=== PATIENT | male | born 1950 | race Caucasian/White ===

== ENCOUNTER → 2017-03-30 | Outpatient (CLI) | payer MEDICARE, OTHER ==
--- NOTE | 2017-03-30 15:02 | DI ---
INDICATION: ITS.REASON: C34.12 MALIGNANT NEOPLASM OF UPPER LOBE, LEFT BRONCHUS OR LUNG PROCEDURE: CHEST 2-VIEWS UPRIGHT (PA \T\ LAT) Encounter: Initial COMPARISON: 01/03/2017 FINDINGS: The lungs are hyperexpanded and hyperlucent with flattened diaphragms. Linear scarring is again seen left perihilar region coursing laterally. The heart size, mediastinal contours and pulmonary vascularity are within normal limits. Right Port-A-Cath remains in place with tip in mid SVC. There is no significant skeletal abnormality. Mild hypertrophic spurring is seen throughout the lower dorsal spine IMPRESSION: 1. No acute cardiopulmonary disease. 2. Stable scarring left mid lung field. 3. Stable hyperlucency and hyperinflation. .
== END ==
LOC: IMA 14:27
PROVIDERS: ATTEND Internal Medicine Hematology & Oncology
DX: C34.12 Malignant neoplasm of upper lobe, left bronchus or lung (principal)

== ENCOUNTER 2017-05-12 11:22 | Inpatient (IN) ==
[2017-05-12] MEDS ORDERED: ONDANSETRON 4 MG/2 ML INJECTION IVP PRN (12:41)
--- NOTE | 2017-05-12 12:50 | History & Physical Report ---
<Lakeshia Medina V - Last Filed: 05/12/17 12:47> History of Present Illness Date: 05/12/17 Chief complaint: lung cancer with metastatic disease to liver HPI: Galindo is a pleasant 67-year-old male who currently resides in [place], [place]. He has been under the care of Dr. Hernandez for lung cancer with metastases to the liver. Patient reports he was initially diagnosed with lung cancer in May 2016. At that time. Liver metastases were found. He underwent chemotherapy as well as radiation. He reports that his liver metastases had resolved. However, in a recent PET scan liver abnormalities were found. He underwent a liver biopsy last week at [facility]. He was instructed by Dr. Thorne to come to [facility] today for further workup, evaluation and chemotherapy treatment. Ronaldo is seen on arrival to [facility]. He is accompanied by his . He is alert, oriented and pleasant. Without any complaints of pain currently. He reports for the last week he is not felt as "perky" since his liver biopsy. No chest pain, shortness of breath, abdominal pain, diarrhea, dysuria or fevers. Did discuss advanced directives with patient and . He does verify that he is a full code. Review of Systems All systems: reviewed and no additional remarkable complaints except as stated - Constitutional Constitutional: Present: fatigue PFSH Patient Stated Medical History Cataracts Yes: bilat. 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 No seizures since that time. Surgical History: Bilateral cataract extraction. Tonsillectomy. Penis implant- removed in 2016 (was present for approximately 9 years) Family History: Father-diabetes, at age 80 Mother-alive and well at age 90 - Social History Smoking status: Former smoker Quit date: 11/21/89 (her dislocated age 14) Substance use type: does not use Alcohol intake: former (Quit ETOH use in 1981.) Housing: house Household members: spouse Current occupational status: retired Medications Home Medications Medication Instructions Recorded Confirmed Type Atenolol [Tenormin] 50 mg PO DAILY 05/12/17 05/12/17 History Hydrocodone/APAP 5/325 [Globe 1 tab PO Q4H PRN 05/12/17 05/12/17 History 5/325] Iron Ps Cmplx/Vit B12/FA 1 each PO BID 05/12/17 05/12/17 History [Poly-Iron 150 Forte Capsule] Magnesium Oxide [Magnesium] 1 tab PO BID 05/12/17 05/12/17 History Multivit-Min/Iron/Folic Acid/K 1 tab PO DAILY 05/12/17 05/12/17 History [Multi-Day Plus Minerals Tablet] Ondansetron HCl [Zofran] 8 mg PO Q8H PRN 05/12/17 05/12/17 History Prochlorperazine Maleate 10 mg PO Q6H PRN 05/12/17 05/12/17 History [Compazine] RX: Aspirin 1 tab PO DAILY 05/12/17 05/12/17 History Tamsulosin HCl [Flomax] 1 cap PO HS 05/12/17 05/12/17 History raNITIdine HCl [Zantac] 1 tab PO BID 05/12/17 05/12/17 History Allergies Allergy/AdvReac Type Severity Reaction Status Date / Time Walnuts Allergy Severe Hypotension Verified 05/12/17 12:09 almond Allergy Intermediate Itching Verified 05/12/17 12:09 Exam Height: 1.87 m Weight: 82.5 kg Body Mass Index: 23.6 - Constitutional Present: no acute distress, well nourished, well developed - Routine HEENT Exam Head: Present: normocephalic, atraumatic Eye: Present: EOMI, PERRL - Routine Neck Exam Present: full ROM - Routine Respiratory Exam Present: CTA bilaterally - Routine Cardiovascular Exam Present: RRR, S1, S2, no murmur - Routine Abdominal Exam Present: soft, normoactive bowel sounds - Routine Extremities Exam Present: non tender, full ROM - Routine Back/Spine/Pelvis Exam Back/Spine: Present: full ROM - Routine Skin Exam Present: intact, warm - Routine Neurological Exam Present: alert, oriented X3, CN II-XII intact, moving all extremities - Routine Psychiatric Exam Present: normal affect, normal thought process Assessment and Plan (1) Lung cancer Current visit: Yes Status: Chronic 05/12/17 13:03 Initially diagnosed in May 2016 (2) Liver metastasis Current visit: Yes Status: Chronic (3) BPH (benign prostatic hyperplasia) Current visit: Yes Status: Chronic DVT Prophylaxis: SCD's Resuscitation Status: Full Code Assessment and Plan: Admit patient to inpatient status under the care of Dr Joseph covering hospitalist. Will obtain basic laboratory studies on admission including CBC, CMP, magnesium , calcium, phosphorus, and urinalysis for laboratory completeness. Will obtain MRI of the brain with contrast as recommended by Dr. Hernandez for further evaluation and to rule out brain metastasis. Consult has been placed for Dr. Hernandez for further oncology evaluation and treatment. SCDs to bilateral lower extremity for DVT prophylaxis. Morphine and 100 ML per hour for gentle hydration. Zofran available as needed for nausea. Resume home magnesium and Flomax. Aspirin Hold in Case Patient Requires Procedure. Again patient wishes to be a full code and this orders written. Will discuss further plan of care with attending, Dr. Joseph. At time of discharge medical care will return to his primary care provider in [place], [place], Dr. Abdulaziz Jett [facility] Course Summary Disclaimer: The visit summary below is not to be considered part of the above Progress Note. Hospital Course: 05/12/17 13:06 Admit patient to inpatient status under the care of Dr Joseph covering hospitalist. Will obtain basic laboratory studies on admission including CBC, CMP, magnesium , calcium, phosphorus, and urinalysis for laboratory completeness. Will obtain MRI of the brain with contrast as recommended by Dr. Hernandez for further evaluation and to rule out brain metastasis. Consult has been placed for Dr. Hernandez for further oncology evaluation and treatment. SCDs to bilateral lower extremity for DVT prophylaxis. Morphine and 100 ML per hour for gentle hydration. Zofran available as needed for nausea. Resume home magnesium and Flomax. Aspirin Hold in Case Patient Requires Procedure. Again patient wishes to be a full code and this orders written. Will discuss further plan of care with attending, Dr. Joseph. At time of discharge medical care will return to his primary care provider in [place], [place], Dr. Abdulaziz Shay <Reji Joseph - Last Filed: 05/12/17 18:02> History of Present Illness Date: 05/12/17 [facility] Patient Stated Medical History Cataracts Yes: bilat. repair Hearing Loss Yes Hypertension Yes Other Respiratory Yes: lung CA left,tx with radiation Other GI Yes: liver CA Clotting Problems Yes: blood clot ?subclavian Blood Transfusions Yes: last year Chemotherapy Yes Exam Vital Signs: Temp Pulse Resp BP Pulse Ox 97.8 F 54 L 16 134/68 93 05/12/17 15:51 05/12/17 17:12 05/12/17 17:12 05/12/17 15:51 05/12/17 17:12 Height: 6 ft 1.5 in Weight: 82.5 kg Results - Labs CBC & Chem 7: 05/12/17 16:12 05/12/17 16:12 Assessment and Plan (1) Lung cancer Current visit: Yes Status: Chronic (2) Liver metastasis Current visit: Yes Status: Chronic (3) BPH (benign prostatic hyperplasia) Current visit: Yes Status: Chronic Assessment and Plan: Above noted. Pt seen and examined. He is up in the chair having his dinner and reports feeling very good. Pt MRI of the brain was negative. Anticipate starting chemo in the AM. Allopurinol ordered at 100mg PO TID; and changed to 300mg PO/day by Oncology. VSS NC/AT ROBEL Chest - RRR no murmurs, good air entry. Abdomen - soft NT/ND. Ext - No edema A/P 1) Neuroendocrine tumor with widespread metastasis - pt to start Chemo in the AM. Hospital Course Summary Disclaimer: The visit summary below is not to be considered part of the above Progress Note.
[2017-05-12] MEDS: NS 1,000 ML IV SCH (13:10)
[2017-05-12] MEDS ORDERED: GADOBUTROL 10mMol/10ml INJECTION IVP ONE (14:19)
[2017-05-12] MEDS ORDERED: SALINE FLUSH 10ml SYRINGE ONE (14:19)
--- NOTE | 2017-05-12 15:15 | Magnetic Resonance Report ---
Indication: History of lung cancer with metastatic disease, evaluate brain mets PROCEDURE: MR head/brain wo/w con: Encounter: Initial Comparisons: Chest CT dated November 16, 2016 Technique: Multiplanar, multisequence, MR imaging of the head with and without contrast was acquired. Contrast: 8 mL of Gadavist FINDINGS: Mild generalized atrophy. The ventricles are of normal size, shape, and contour for the patient's age. There are small nonspecific punctate areas of T2-weighted and T2 FLAIR weighted signal abnormality in the deep frontoparietal white matter that most likely represent small vessel ischemic disease. This is of a degree that is considered to be normal for the patient's age. The brain stem, cerebellum, and cerebral hemispheres otherwise have a normal morphologic appearance as well as MR signal intensity on all pulse sequences. Following intravenous administration of contrast, no areas of abnormal enhancement are evident. There are no areas of restricted diffusion to suggest an acute infarct. There is no evidence of an intracranial mass lesion, intracranial hemorrhage, or hydrocephalus. The visualized portions of the orbits, calvarium, paranasal sinuses, and skull base demonstrate no significant abnormality. IMPRESSION: No evidence of intracranial metastatic disease. No acute abnormality seen. .
[2017-05-12] MEDS ORDERED: ALLOPURINOL 100 MG TABLET PO SCH (17:35)
[2017-05-12] MEDS: ALLOPURINOL 300 MG TABLET PO SCH (17:49)
[2017-05-12] MEDS: HYDROCODONE/APAP 5mg/325mg TABLET PO PRN (18:38)
[2017-05-12] MEDS: TAMSULOSIN 0.4 MG CAPSULE PO SCH (21:14)
[2017-05-12] MEDS: MAGNESIUM OXIDE 400 MG TABLET PO SCH (21:14)
[2017-05-13] MEDS: NS 1,000 ML IV SCH ×3 (00:47→21:28)
[2017-05-13] MEDS: HYDROCODONE/APAP 5mg/325mg TABLET PO PRN ×5 (00:53→22:34)
--- NOTE | 2017-05-13 08:47 | Consult Note ---
Oncology HPI - Data of Consult Patient: known to practice within the last 3 years <Sarah Hooper Mackenzie - 05/13/17 08:47> Consult date: 05/13/17 <SandieSarah alonzo Mackenzie - 05/13/17 12:05> Requesting Physician: Reji Joseph MD <Oswaldo Hernandez - 05/13/17 14:56> Reji Joseph MD <Sarah Hooper - 05/13/17 12:05> Primary Care Provider: Abdulaziz Shay DO <Oswaldo Hernandez - 05/13/17 14:56> Abdulaziz Shay DO <Sarah Hooper - 05/13/17 08:47> Family Provider: Abdulaziz Shay DO <Oswaldo Hernandez - 05/13/17 14:56> Abdulaziz Shay DO <SandieSarah L - 05/13/17 08:47> - Consult Narrative Reason for consult: lung cancer <Sarah Hooper - 05/13/17 08:47> History of present illness: Well-known patient to Dr. Hernandez with non-small cell lung cancer diagnosed May 2016, s/p chemoradiation had recent CT evidence of progressive disease in the liver, disease in lung improved. Current PET scan shows extensive disease along the peritoneum, most compatible with a GI primary , but also could be related to a lung primary. 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 Plan chemotherapy as inpatient with carboplatin and etoposide, with close monitoring of renal/liver function and counts. At time of intake, he is alone in room, sitting in chair. Continues to have intermittent right upper quadrant pain, states relieved with as needed medications. Has decreased appetite, denies nausea or vomiting. No fever, chills , night sweats. Denies chest pain, cough, or shortness of air. Voiding normally. Normal BM yesterday, has no new concerns. See below for history of present illness/last progress note from Dr. Hernandez History of Present Illness --2016: Weight loss about 20 pound over time period of 11/2015 to 05/2016. --05/2016: Night sweats 03/2016 to 05/2016. --05/21/16: CT scan of the chest: Showing left upper lobe mass and mediastinal adenopathy. --06/04/16: Bronchoscopy with pathology being non small cell lung cancer NOS. --06/18/16: Biocept: EGFR and BRAF not detected. ALK , ROS 1 pending. --07/01/16: Began chemotherapy with Abraxane and Carboplatin. --08/05/16: ANC 800. Added G-CSF. --08/06/16: Received two units of PRBCs. --10/25/16: Began weekly Carboplatin Abraxane with XRT --12/17/16: Completed XRT. --03/14/17: Initiation of stereotactic radiation to the liver lesion. Office visit 05/12/17: Gene comes in with his this afternoon. He has pain just below his liver. The pathologist thinks this is a different cancer than the cancer in his lung; possible neuroendocrine of GI origin. We reviewed the results of his labs, PET scan, and pathology. A neuroendocrine cancer tends to grow rapidly so we need to start treatment now. There is a risk of significant side effects. I want to admit him to the hospital for 3 days and get treatment started tomorrow. If we don't treat, average survival is 2-3 months; with treatments, average survival is closer to a year, some patients go 2-3 years. He does not want to just stand and stare at it so agrees to treatment. I talked to the hospitalist at [facility] about admitting him. I expect him to be dismissed next Tuesday and he can see Patricia Hooper for a radha visit at the end of the week. <Sarah Hooper - 05/13/17 12:05> Review of Systems - Constitutional Constitutional: Present: anorexia, fatigue. Absent: chills, fever(s), night sweats <Sarah Hooper - 05/13/17 12:05> - EENT Eyes: Absent: change in vision, diplopia <Sarah Hooper - 05/13/17 12:05> - Cardiovascular Cardiovascular: Absent: chest pain, palpitations, dyspnea on exertion <Sarah Hooper - 05/13/17 12:05> - Respiratory Respiratory: Absent: cough, dyspnea, wheezing <Sarah Hooper - 05/13/17 12:05 > - Gastrointestinal Gastrointestinal: Present: as per HPI, abdominal pain. Absent: change in bowel habits, nausea, vomiting <Sarah Hooper - 05/13/17 12:05> - Genitourinary Genitourinary: Absent: hematuria, urinary frequency <Sarah Hooper Mackenzie 12:05> - Musculoskeletal Musculoskeletal: Absent: arthralgias, muscle weakness <Sarah Hooper - 12:05> - Integumentary/Breasts Integumentary: Absent: rash, wounds <Sarah Hooper Mackenzie 05/13/17 12:05> - Neurological Neurological: Absent: focal weakness, headache(s) <Sarah Hooper 05/13/17 12:05> - Psychiatric Psychiatric: Present: as per HPI <Sarah Hooper 05/13/17 12:05> PFSH Patient Stated Medical History Cataracts Yes: bilat. repair Hearing Loss Yes Hypertension Yes Other Respiratory Yes: lung CA left,tx with radiation Other GI Yes: liver CA Clotting Problems Yes: blood clot ?subclavian Blood Transfusions Yes: last year Chemotherapy Yes <Oswaldo Hernandez - 05/13/17 14:56> Patient Stated Medical History Cataracts Yes: bilat. repair Hearing Loss Yes Hypertension Yes Other Respiratory Yes: lung CA left,tx with radiation Other GI Yes: liver CA Clotting Problems Yes: blood clot ?subclavian Blood Transfusions Yes: last year Chemotherapy Yes <Sarah Hooper Mackenzie 05/13/17 12:05> Surgical History: Bilateral cataract extraction. Tonsillectomy. Penis implant- removed in 2016 (was present for approximately 9 years) <Sarah Hooper Mackenzie 08:47> Family History: Paternal grandfather cancer of the spine, paternal uncle with some type of unknown cancer. No other known cancers in maternal grandparents, aunts, uncles or first cousins. <Sarah Hooper Mackenzie 05/13/17 12:05> - Social History Smoking status: Former smoker (36 pack year history, quit 1989.) <Sarah Hooper Mackenzie 05/13/17 12:05> Medications Home Medications Medication Instructions Recorded Confirmed Type Aspirin 1 tab PO DAILY 05/12/17 05/12/17 History Atenolol [Tenormin] 50 mg PO DAILY 05/12/17 05/12/17 History Hydrocodone/APAP 5/325 [Cody 1 tab PO Q4H PRN 05/12/17 05/12/17 History 5/325] Iron Ps Cmplx/Vit B12/FA 1 each PO BID 05/12/17 05/12/17 History [Poly-Iron 150 Forte Capsule] Magnesium Oxide [Magnesium] 1 tab PO BID 05/12/17 05/12/17 History Multivit-Min/Iron/Folic Acid/K 1 tab PO DAILY 05/12/17 05/12/17 History [Multi-Day Plus Minerals Tablet] Ondansetron HCl [Zofran] 8 mg PO Q8H PRN 05/12/17 05/12/17 History Prochlorperazine Maleate 10 mg PO Q6H PRN 05/12/17 05/12/17 History [Compazine] Tamsulosin HCl [Flomax] 1 cap PO HS 05/12/17 05/12/17 History raNITIdine HCl [Zantac] 1 tab PO BID 05/12/17 05/12/17 History <Oswaldo Hernandez - 05/13/17 14:56> Allergies Allergy/AdvReac Type Severity Reaction Status Date / Time Walnuts Allergy Severe Hypotension Verified 05/12/17 12:09 almond Allergy Intermediate Itching Verified 05/12/17 12:09 <Oswaldo Hernandez - 05/13/17 14:56> Exam Vital signs: Temp Pulse Resp BP Pulse Ox 96.6 F L 56 L 16 133/66 95 05/13/17 07:00 05/13/17 12:14 05/13/17 07:00 05/13/17 12:14 05/13/17 12:14 <Oswaldo Hernandez - 05/13/17 14:56> Temp Pulse Resp BP Pulse Ox 96.6 F L 60 16 129/66 94 05/13/17 07:00 05/13/17 07:00 05/13/17 07:00 05/13/17 07:00 05/13/17 07:00 <Sarah Hooper - 05/13/17 08:47> - Constitutional no acute distress, well nourished, well developed <Sarah Hooper - 05/13/17 12:05> - Routine HEENT Exam Head: Present: normocephalic <Sarah Hooper - 05/13/17 12:05> Eye: Present: EOMI, conjunctivae pink <Sarah Hooper 05/13/17 12:05> ENT: Present: mucous membranes moist <Sarah Hooper - 05/13/17 12:05> - Routine Neck Exam Absent: lymphadenopathy, tenderness <Sarah Hooper 05/13/17 12:05> - Routine Respiratory Exam Present: decreased breath sounds, CTA bilaterally. Absent: accessory muscle use , wheezes, crackles <Sarah Hooper 05/13/17 12:05> - Routine Cardiovascular Exam Present: RRR. Absent: murmur <Sarah Hooper 05/13/17 12:05> - Routine Abdominal Exam Present: soft, normoactive bowel sounds, tenderness (mild tenderness with exam) . Absent: distended, firm <Sarah Hooper 05/13/17 12:05> - Routine Extremities Exam Present: full ROM. Absent: no edema <Sarah Hooper 05/13/17 12:05> - Routine Back/Spine/Pelvis Exam Back/Spine: Absent: vertebral tenderness <Sarah Hooper 05/13/17 12:05> - Routine Skin Exam Present: intact, dry, warm. Absent: rash <Sarah Hooper 05/13/17 12:05> - Routine Neurological Exam Present: alert, oriented X3. Absent: sensory deficit, motor deficit <Sarah Hooper 05/13/17 12:05> - Routine Psychiatric Exam Present: normal affect, normal thought process <Sarah Hooper 05/13/17 12: 05> Oncology Results - Labs CBC & Chem 7: 05/13/17 05:21 05/13/17 05:21 <Oswaldo Hernandez - 05/13/17 14:56> Labs: Short CBC 05/12/17 05/13/17 Range/Units 16:12 05:21 WBC 7.1 6.3 (4.5-11.0) T/MM3 Hgb 12.0 L 10.4 L D (13.5-17.5) GM/DL Hct 38.1 L 33.6 L D (41-53) % Plt Count 263 239 (130-400) T/MM3 [facility] 05/12/17 05/13/17 16:12 05:21 Sodium 145 H 142 Potassium 4.8 4.4 Chloride 105 105 Carbon Dioxide 30 30 BUN 31.0 H 26.0 H Creatinine 1.0 0.9 Glucose 131 H 85 Calcium 9.5 8.4 D Liver Function 05/12/17 05/13/17 Range/Units 16:12 05:21 Total Bilirubin 0.50 0.60 (0.20-1.30) MG/DL AST 110 H 127 H (17-59) U/L ALT 101 H 107 H (21-72) U/L Alkaline Phosphatase 248 H 220 H (38-126) U/L Albumin 3.6 3.1 L (3.5-5.0) G/DL Urine 05/12/17 Range/Units 17:52 Urine Color Yellow (YELLOW) Urine Clarity Clear Urine pH 5.0 (5.0-8.0) Ur Specific [place] >=1.030 H (1.015-1.025) Urine Protein Negative (NEGATIVE) Urine Glucose (UA) Negative (NEGATIVE) <Oswaldo Hernandez D - 05/13/17 14:56> Short CBC 05/12/17 05/13/17 Range/Units 16:12 05:21 WBC 7.1 6.3 (4.5-11.0) T/MM3 Hgb 12.0 L 10.4 L D (13.5-17.5) GM/DL Hct 38.1 L 33.6 L D (41-53) % Plt Count 263 239 (130-400) T/MM3 [facility] 05/12/17 05/13/17 16:12 05:21 Sodium 145 H 142 Potassium 4.8 4.4 Chloride 105 105 Carbon Dioxide 30 30 BUN 31.0 H 26.0 H Creatinine 1.0 0.9 Glucose 131 H 85 Calcium 9.5 8.4 D Liver Function 05/12/17 05/13/17 Range/Units 16:12 05:21 Total Bilirubin 0.50 0.60 (0.20-1.30) MG/DL AST 110 H 127 H (17-59) U/L ALT 101 H 107 H (21-72) U/L Alkaline Phosphatase 248 H 220 H (38-126) U/L Albumin 3.6 3.1 L (3.5-5.0) G/DL Urine 05/12/17 Range/Units 17:52 Urine Color Yellow (YELLOW) Urine Clarity Clear Urine pH 5.0 (5.0-8.0) Ur Specific [place] >=1.030 H (1.015-1.025) Urine Protein Negative (NEGATIVE) Urine Glucose (UA) Negative (NEGATIVE) <Sarah Hooper - 05/13/17 08:47> - Impressions Pathology shows a poorly differentiated neoplasm from the liver biopsy. Immunostains favor neuroendocrine tumor. Consider pheochromocytoma cytoma or small cell lung cancer tumor is positive for CD 56 and CDX 2. 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 Plan GCSF support. <Sarah Hooper - 05/13/17 11:45> (1) Lung cancer Start date: 06/04/16 Current visit: Yes Status: Chronic (2) Liver metastasis Current visit: Yes Status: Chronic Liver metastasis shows a poorly differentiated neuroendocrine carcinoma that is grown very rapidly over the last 3 months with associated marked increase in LDH. Currently admitted for initial cycle of chemotherapy with prevention of tumor lysis. <Oswaldo Hernandez - 05/13/17 14:56> Assessment and Plan: Patient examined, chart reviewed, agree with documentation by Patricia Hooper. I participate in the development of the plan of care with this patient and I discussed the case with hospitalist. 1. Extensive liver metastasis from neuroendocrine carcinoma CDX 2 positivity makes it seem like it is of GI origin. It could be of lung origin however. In any case the extensive disease in the rapid progression after stereotactic radiotherapy elevated LDH document the need for urgent treatment. Will begin chemotherapy for neuroendocrine carcinoma with carboplatinum and etoposide. Doses were calculated and will plan on starting this therapy today. 2. Lung malignancy poorly differentiated. Treated with chemotherapy initially and liver lesion went away. Had chemoradiation and lung cancer has responded dramatically well. 3. Pain in liver secondary to tumor 4. Elevated LDH secondary to tumor. Plan: Chemotherapy with Carboplatin and etopiside Hydration allopurinol Neulasta on Day 4 or 5. This can be done on outpatient basis after completion of chemotherapy on Tuesday. He can be dismissed on Tuesday if tolerating well. <Oswaldo Hernandez - 05/13/17 14:56> Sepsis Assessment - Evaluation Sepsis screening result: No Definite Risk <Sarah Hooper - 05/13/17 08:47>
--- NOTE | 2017-05-13 09:36 | Progress Note ---
Subjective: Pt states he is feeling fine. He has noticed some discomfort on his RUQ and lower thoracic area. Pt has not had any cough or fever. He will be starting chemo later today. Objective Vital signs: Temp Pulse Resp BP Pulse Ox 96.6 F L 60 16 129/66 94 05/13/17 07:00 05/13/17 07:00 05/13/17 07:00 05/13/17 07:00 05/13/17 07:00 Rhythm: Normal Sinus Rhythm Weight: 84.2 kg - Constitutional Present: no acute distress, well developed, thin - Routine HEENT Exam Head: Present: normocephalic, atraumatic Eye: Present: EOMI, PERRL - Routine Respiratory Exam Present: CTA bilaterally - Routine Cardiovascular Exam Present: RRR - Routine Abdominal Exam Present: soft, non distended, non tender - Routine Neurological Exam Present: alert, oriented X3 - Routine Psychiatric Exam Present: normal thought process Results - Labs CBC & Chem 7: 05/13/17 05:21 05/13/17 05:21 Assessment and Plan (1) Lung cancer Current visit: Yes Status: Chronic 05/12/17 13:03 Initially diagnosed in May 2016 (2) Liver metastasis Current visit: Yes Status: Chronic (3) BPH (benign prostatic hyperplasia) Current visit: Yes Status: Chronic Assessment and Plan: This is a 67 YO male admitted with a neuroendocrine tumor with liver mets who will be starting chemo today. MRI done on 05/12 was normal. A/P 1) Neuroendocrine tumor with widespread metastasis - pt to start Chemo later today. 2) ? of atelectasis ? after liver biopsy - Check CXR PA and lateral. - May need incentive spirometry. Sepsis Assessment - Evaluation Sepsis screening result: No Definite Risk Hospital Course Summary Disclaimer: The visit summary below is not to be considered part of the above Progress Note. Hospital Course: 05/12/17 13:06 Admit patient to inpatient status under the care of Dr Jake josue hospitalist. Will obtain basic laboratory studies on admission including CBC, CMP, magnesium , calcium, phosphorus, and urinalysis for laboratory completeness. Will obtain MRI of the brain with contrast as recommended by Dr. Hernandez for further evaluation and to rule out brain metastasis. Consult has been placed for Dr. Hernandez for further oncology evaluation and treatment. SCDs to bilateral lower extremity for DVT prophylaxis. Morphine and 100 ML per hour for gentle hydration. Zofran available as needed for nausea. Resume home magnesium and Flomax. Aspirin Hold in Case Patient Requires Procedure. Again patient wishes to be a full code and this orders written. Will discuss further plan of care with attending, Dr. Joseph. At time of discharge medical care will return to his primary care provider in [place], [place], Dr. Abdulaziz Shay
[2017-05-13] MEDS: MAGNESIUM OXIDE 400 MG TABLET PO SCH ×2 (09:42→21:28)
[2017-05-13] MEDS: ALLOPURINOL 300 MG TABLET PO SCH (09:42)
[2017-05-13] MEDS: ATENOLOL 50 MG TABLET PO SCH (09:42)
--- NOTE | 2017-05-13 10:40 | XRay Report ---
INDICATION: Lower R sided Chest pain PROCEDURE: CHEST 2-VIEWS UPRIGHT (PA & LAT) Encounter: Initial COMPARISON: March 30, 2017 FINDINGS: Stable area of scarring in the left upper lobe. Emphysema. No consolidation, pleural effusion or pneumothorax. Heart size and mediastinal contours are stable. Right IJ port catheter. Pulmonary vascularity appears normal. Impression: Stable chest without acute cardiopulmonary disease. .
[2017-05-13] MEDS ORDERED: DEXAMETHASONE IV SCH (11:00)
[2017-05-13] MEDS ORDERED: PALONOSETRON 0.25 MG/5 ML INJECTION IV ONE (11:00)
[2017-05-13] MEDS ORDERED: NS IV SCH (11:00)
[2017-05-13] MEDS ORDERED: D5W IV SCH (11:30)
[2017-05-13] MEDS ORDERED: CARBOPLATIN IV SCH (11:30)
[2017-05-13] MEDS ORDERED: NS IV ONE (12:30)
[2017-05-13] MEDS ORDERED: ETOPOSIDE IV ONE (12:30)
[2017-05-13] MEDS: TAMSULOSIN 0.4 MG CAPSULE PO SCH (21:28)
[2017-05-13] MEDS: PROCHLORPERAZINE 10 MG TABLET PO PRN (21:28)
[2017-05-14] MEDS: HYDROCODONE/APAP 5mg/325mg TABLET PO PRN ×2 (08:03→21:35)
[2017-05-14] MEDS: PROCHLORPERAZINE 10 MG TABLET PO PRN (08:03)
[2017-05-14] MEDS: ALLOPURINOL 300 MG TABLET PO SCH (08:03)
[2017-05-14] MEDS: MAGNESIUM OXIDE 400 MG TABLET PO SCH ×2 (08:03→21:36)
[2017-05-14] MEDS: ATENOLOL 50 MG TABLET PO SCH (08:03)
--- NOTE | 2017-05-14 10:43 | Progress Note ---
Subjective: Pt states his appetite is poor, otherwise denies any discomfort. Does not appear to be SOB, or in any distress. Objective Vital signs: Temp Pulse Resp BP Pulse Ox 96.5 F L 62 18 165/79 H 92 05/14/17 07:10 05/14/17 07:10 05/14/17 07:10 05/14/17 07:10 05/14/17 07:10 Rhythm: Normal Sinus Rhythm Weight: 85.8 kg - Constitutional Present: no acute distress, well nourished, well developed, thin - Routine HEENT Exam Head: Present: normocephalic, atraumatic - Routine Respiratory Exam Present: CTA bilaterally - Routine Cardiovascular Exam Present: RRR. Absent: murmur - Routine Abdominal Exam Present: soft, non distended, non tender - Routine Extremities Exam Absent: cyanosis, clubbing, edema - Routine Musculoskeletal Exam Musculoskeletal: no clubbing or cyanosis - Routine Skin Exam Present: intact - Routine Neurological Exam Present: alert, oriented X3 - Routine Psychiatric Exam Present: normal affect, cooperative Results - Labs CBC & Chem 7: 05/14/17 04:29 05/14/17 04:29 Assessment and Plan (1) Lung cancer Current visit: Yes Status: Chronic 05/12/17 13:03 Initially diagnosed in May 2016 (2) Liver metastasis Current visit: Yes Status: Chronic (3) BPH (benign prostatic hyperplasia) Current visit: Yes Status: Chronic Assessment and Plan: This is a 67 YO male admitted with a neuroendocrine tumor with liver mets who was admitted for chemo and was started on 05/13. MRI done on 05/12 was negative for any brain mets. A/P 1) Neuroendocrine tumor with widespread metastasis - Blood tests show elevation of the LFT's, Alk phos most likely due to the liver mets. - Mg is normal today. - Uric acid 3.9 today, pt on Allopurinol. - LDH very high likely due to cell due to chemo. - Pt was informed about Marinol to manage poor appetite and nausea. Sepsis Assessment - Evaluation Sepsis screening result: No Definite Risk Hospital Course Summary Disclaimer: The visit summary below is not to be considered part of the above Progress Note. Hospital Course: 05/12/17 13:06 Admit patient to inpatient status under the care of Dr Jake josue hospitalist. Will obtain basic laboratory studies on admission including CBC, CMP, magnesium , calcium, phosphorus, and urinalysis for laboratory completeness. Will obtain MRI of the brain with contrast as recommended by Dr. Hernandez for further evaluation and to rule out brain metastasis. Consult has been placed for Dr. Hernandez for further oncology evaluation and treatment. SCDs to bilateral lower extremity for DVT prophylaxis. Morphine and 100 ML per hour for gentle hydration. Zofran available as needed for nausea. Resume home magnesium and Flomax. Aspirin Hold in Case Patient Requires Procedure. Again patient wishes to be a full code and this orders written. Will discuss further plan of care with attending, Dr. Joseph. At time of discharge medical care will return to his primary care provider in [place], [place], Dr. Abdulaziz Shay 05/14/17 10:46 05/13 -/05/14 Chemo started. Mg normal. LFT's trending up, LDH very high - due to liver mets and cell due to chemo. developed Nausea on 05/14.
[2017-05-14] MEDS: NS 1,000 ML IV SCH (11:21)
[2017-05-14] MEDS: ONDANSETRON 4 MG/2 ML INJECTION IVP PRN (12:22)
[2017-05-14] MEDS ORDERED: NS IV SCH (12:30)
[2017-05-14] MEDS ORDERED: DEXAMETHASONE IV SCH (12:30)
[2017-05-14] MEDS ORDERED: NS IV ONE (13:00)
[2017-05-14] MEDS ORDERED: ETOPOSIDE IV ONE (13:00)
--- NOTE | 2017-05-14 14:38 | Progress Note ---
Oncology Subjective wm in nad, c/o heartburn, anorexia, reflux, nausea, vomiting Exam Vital signs: Temp Pulse Resp BP Pulse Ox 96.5 F L 66 18 143/70 H 96 05/14/17 07:10 05/14/17 12:00 05/14/17 12:00 05/14/17 12:00 05/14/17 12:00 Narrative: wm in nad, c/o nausea - Constitutional no acute distress, well nourished - Routine HEENT Exam Head: Present: normocephalic, atraumatic - Routine Neck Exam Present: supple, full ROM - Routine Respiratory Exam Present: CTA bilaterally - Routine Cardiovascular Exam Present: RRR, no murmur - Routine Abdominal Exam Present: soft, tenderness Oncology Results - Labs CBC & Chem 7: 05/14/17 04:29 05/14/17 04:29 Labs: Short CBC 05/14/17 Range/Units 04:29 WBC 8.3 (4.5-11.0) T/MM3 Hgb 11.2 L (13.5-17.5) GM/DL Hct 35.4 L (41-53) % Plt Count 240 (130-400) T/MM3 BMP 05/14/17 04:29 Sodium 143 Potassium 4.9 Chloride 106 Carbon Dioxide 29 BUN 23.0 H Creatinine 0.7 L D Glucose 185 H Calcium 8.6 Liver Function 05/14/17 Range/Units 04:29 Total Bilirubin 0.70 (0.20-1.30) MG/DL AST 1148 H D (17-59) U/L ALT 526 H D (21-72) U/L Alkaline Phosphatase 241 H (38-126) U/L Albumin 3.1 L (3.5-5.0) G/DL Assessment and Plan (1) Lung cancer Status: Chronic Assessment and plan: continue chemo with carbo and vp mobile products-16 Current Visit: Yes (2) Liver metastasis Status: Chronic Assessment and plan: chemo with carbo and vp mobile products-16 Current Visit: Yes Assessment and Plan: Patient examined, chart reviewed, agree with documentation by Patricia Hooper. I participate in the development of the plan of care with this patient and I discussed the case with hospitalist. 1. Extensive liver metastasis from neuroendocrine carcinoma CDX 2 positivity makes it seem like it is of GI origin. It could be of lung origin however. In any case the extensive disease in the rapid progression after stereotactic radiotherapy elevated LDH document the need for urgent treatment. Will begin chemotherapy for neuroendocrine carcinoma with carboplatinum and etoposide. Doses were calculated and will plan on starting this therapy today. 2. Lung malignancy poorly differentiated. Treated with chemotherapy initially and liver lesion went away. Had chemoradiation and lung cancer has responded dramatically well. 3. Pain in liver secondary to tumor 4. Elevated LDH secondary to tumor. Plan: Chemotherapy with Carboplatin and etopiside Hydration allopurinol Neulasta on Day 4 or 5. This can be done on outpatient basis after completion of chemotherapy on Tuesday. He can be dismissed on Tuesday if tolerating well. Due to nausea and heartburn I d/w hospitalist to add protonix as well. Also, consider med for anorxia also, consider med for constipation and to increase BM qd Plan chemo with vp mobile products-16 today and in am - Time Spent With Patient Total time spent is greater than 50% in coordination of care (as documented) at patient's floor/unit and/or counseling patient: less than 15 minutes Sepsis Assessment - Evaluation Sepsis screening result: No Definite Risk
[2017-05-14] MEDS: TAMSULOSIN 0.4 MG CAPSULE PO SCH (21:36)
[2017-05-15] MEDS: NS 1,000 ML IV SCH ×3 (00:32→10:18)
[2017-05-15] MEDS: ATENOLOL 50 MG TABLET PO SCH (09:00)
[2017-05-15] MEDS: ALLOPURINOL 300 MG TABLET PO SCH (09:00)
[2017-05-15] MEDS: MAGNESIUM OXIDE 400 MG TABLET PO SCH (09:00)
--- NOTE | 2017-05-15 11:57 | Progress Note ---
Oncology Subjective wm in nad, pos for gas, but no bm to date. pt expects to take stool softener at home, expects home today. ambulatory today and yesterday. Home Medications Aspirin 1 tab PO DAILY 05/12/17 [History Confirmed 05/12/17] Atenolol [Tenormin] 50 mg PO DAILY 05/12/17 [History Confirmed 05/12/17] Hydrocodone/APAP 5/325 [[place] 5/325] 1 tab PO Q4H PRN 05/12/17 [History Confirmed 05/12/17] Iron Ps Cmplx/Vit B12/FA [Poly-Iron 150 Forte Capsule] 1 each PO BID 05/12/17 [ History Confirmed 05/12/17] Magnesium Oxide [Magnesium] 1 tab PO BID 05/12/17 [History Confirmed 05/12/17] Multivit-Min/Iron/Folic Acid/K [Multi-Day Plus Minerals Tablet] 1 tab PO DAILY 05/12/17 [History Confirmed 05/12/17] Ondansetron HCl [Zofran] 8 mg PO Q8H PRN 05/12/17 [History Confirmed 05/12/17] Prochlorperazine Maleate [Compazine] 10 mg PO Q6H PRN 05/12/17 [History Confirmed 05/12/17] Tamsulosin HCl [Flomax] 1 cap PO HS 05/12/17 [History Confirmed 05/12/17] raNITIdine HCl [Zantac] 1 tab PO BID 05/12/17 [History Confirmed 05/12/17] Active Medications Acetaminophen/Hydrocodone Bitart ([place] 5/325) 1 tab PO Q4H PRN PRN Reason: Pain Last Admin: 05/14/17 21:35 Dose: 1 tab Allopurinol (Zyloprim) 300 mg PO DAILY SANIYA Last Admin: 05/15/17 09:00 Dose: 300 mg Atenolol (Tenormin) 50 mg PO DAILY SANIYA Last Admin: 05/15/17 09:00 Dose: 50 mg Sodium Chloride (Normal Saline) 1,000 mls @ 100 mls/hr IV .Q10H SANIYA Last Infusion: 05/15/17 11:45 Dose: 0 mls/hr Etoposide 210 mg/ Sodium (Chloride) 510.5 mls @ 200 mls/hr IV 1300 ONE Stop: 05/15/17 15:33 Dexamethasone Sodium Phosphate (10 mg/ Sodium Chloride) 52.5 mls @ 157.5 mls/ hr IV .Q20M [facility] Stop: 05/15/17 12:49 Last Admin: 05/15/17 11:45 Dose: 157.5 mls/hr Magnesium Oxide (Magox) 400 mg PO BID [facility] Last Admin: 05/15/17 09:00 Dose: 400 mg Ondansetron HCl (Zofran) 4 mg IVP Q6H PRN PRN Reason: Nausea &/or vomiting Last Admin: 05/14/17 12:22 Dose: 4 mg Prochlorperazine (Compazine) 10 mg PO QID PRN PRN Reason: Nausea &/or vomiting Last Admin: 05/14/17 08:03 Dose: 10 mg Tamsulosin HCl (Flomax) 0.4 mg PO HS [facility] Last Admin: 05/14/17 21:36 Dose: 0.4 mg Exam Vital signs: Temp Pulse Resp BP Pulse Ox 98.5 F 54 L 16 166/72 H 91 05/15/17 07:59 05/15/17 07:59 05/15/17 07:59 05/15/17 07:59 05/15/17 07:59 Narrative: wm in nad - Constitutional no acute distress, well nourished - Routine HEENT Exam Head: Present: normocephalic, atraumatic Eye: Present: EOMI, PERRL ENT: Present: mucous membranes moist - Routine Respiratory Exam Present: CTA bilaterally. Absent: wheezes, crackles - Routine Cardiovascular Exam Present: RRR, no murmur - Routine Abdominal Exam Present: soft, organomegaly (ruq is full). Absent: normoactive bowel sounds, tenderness - Routine Extremities Exam Absent: cyanosis, clubbing, edema - Routine Neurological Exam Present: alert, oriented X3 - Routine Psychiatric Exam Present: normal affect Oncology Results - Labs CBC & Chem 7: 05/15/17 04:30 05/15/17 04:30 Labs: Short CBC 05/15/17 Range/Units 04:30 WBC 10.7 (4.5-11.0) T/MM3 Hgb 10.6 L (13.5-17.5) GM/DL Hct 33.8 L (41-53) % Plt Count 212 (130-400) T/MM3 [facility] 05/15/17 04:30 Sodium 141 Potassium 5.0 Chloride 105 Carbon Dioxide 29 BUN 23.0 H Creatinine 0.8 Glucose 160 H Calcium 8.6 Liver Function 05/15/17 Range/Units 04:30 Total Bilirubin 0.50 (0.20-1.30) MG/DL AST 393 H D (17-59) U/L ALT 373 H (21-72) U/L Alkaline Phosphatase 224 H (38-126) U/L Albumin 3.0 L (3.5-5.0) G/DL Assessment and Plan (1) Lung cancer Status: Chronic Assessment and plan: on carbo/vp client services-16 chemotherapy, jt well Current Visit: Yes (2) Liver metastasis Status: Chronic Assessment and plan: chemo today Current Visit: Yes (3) Constipation Status: Acute Assessment and plan: consider stool softeners or laxatives, encourage hydration and ambulation, follow as out patient, limit narcotics to as needed Current Visit: Yes (4) Nausea Status: Acute Assessment and plan: prn nausea meds available Current Visit: Yes (5) History of radiation therapy Status: Acute Current Visit: No (6) History of chemotherapy Status: Acute Assessment and plan: in past Current Visit: Yes Assessment and Plan: Patient examined, chart reviewed, agree with documentation by Patricia Hooper. I participate in the development of the plan of care with this patient and I discussed the case with hospitalist. 1. Extensive liver metastasis from neuroendocrine carcinoma CDX 2 positivity makes it seem like it is of GI origin. It could be of lung origin however. In any case the extensive disease in the rapid progression after stereotactic radiotherapy elevated LDH document the need for urgent treatment. Will begin chemotherapy for neuroendocrine carcinoma with carboplatinum and etoposide. Doses were calculated and will plan on starting this therapy today. 2. Lung malignancy poorly differentiated. Treated with chemotherapy initially and liver lesion went away. Had chemoradiation and lung cancer has responded dramatically well. 3. Pain in liver secondary to tumor 4. Elevated LDH secondary to tumor. Plan: Chemotherapy with Carboplatin and etopiside Hydration allopurinol Neulasta on Day 4 or 5. This can be done on outpatient basis after completion of chemotherapy on Tuesday. He can be dismissed on Tuesday if tolerating well. ok to d/c home, plan neulasta as an outpatient in the am in the clinic. - Time Spent With Patient Total time spent is greater than 50% in coordination of care (as documented) at patient's floor/unit and/or counseling patient: less than 15 minutes Sepsis Assessment - Evaluation Sepsis screening result: No Definite Risk
[2017-05-15] MEDS: ONDANSETRON 4 MG/2 ML INJECTION IVP PRN (12:14)
[2017-05-15] MEDS ORDERED: NS IV SCH (12:30)
[2017-05-15] MEDS ORDERED: DEXAMETHASONE IV SCH (12:30)
[2017-05-15] MEDS ORDERED: ETOPOSIDE IV ONE (13:00)
[2017-05-15] MEDS ORDERED: NS IV ONE (13:00)
--- NOTE | 2017-05-15 14:12 | Discharge Summary ---
Discharge Plan - Med Rec/Dispo Prescriptions: New Allopurinol [Zyloprim] 300 mg PO DAILY #7 Continue Aspirin 1 tab PO DAILY Hydrocodone/APAP 5/325 [[place] 5/325] 1 tab PO Q4H PRN PRN Reason: Pain Atenolol [Tenormin] 50 mg PO DAILY Ondansetron HCl [Zofran] 8 mg PO Q8H PRN PRN Reason: Nausea Prochlorperazine Maleate [Compazine] 10 mg PO Q6H PRN PRN Reason: Nausea raNITIdine HCl [Zantac] 1 tab PO BID Tamsulosin HCl [Flomax] 1 cap PO HS Magnesium Oxide [Magnesium] 1 tab PO BID #20 Iron Ps Cmplx/Vit B12/FA [Poly-Iron 150 Forte Capsule] 1 each PO BID Multivit-Min/Iron/Folic Acid/K [Multi-Day Plus Minerals Tablet] 1 tab PO DAILY Discharge Instructions/Outpatient Orders: Final Provider Discharge Instructions Location: Determined By Patient - Disposition 01 Discharged Home, Self-Care
--- NOTE | 2017-05-15 14:17 | Discharge Summary ---
Discharge Information Date of admission: 05/12/17 11:22 Attending Physician: Reji Joseph MD Primary care physician: Abdulaziz Shay DO Consults: 05/12/17 12:44 Physician Consult [CONS] Routine Consulting Provider: Oswaldo Hernandez Reason For Exam: oncology care Ordering Provider has Notified Buttoner: Yes - Discharge Diagnosis (1) Lung cancer Status: Chronic (2) Liver metastasis Status: Chronic (3) BPH (benign prostatic hyperplasia) Status: Chronic - Laboratory Labs: 05/15/17 04:30 05/15/17 04:30 History of Present Illness HPI: Galindo is a pleasant 67-year-old male who currently resides in [place], [place]. He has been under the care of Dr. Hernandez for lung cancer with metastases to the liver. Patient reports he was initially diagnosed with lung cancer in May 2016. At that time. Liver metastases were found. He underwent chemotherapy as well as radiation. He reports that his liver metastases had resolved. However, in a recent PET scan liver abnormalities were found. He underwent a liver biopsy last week at [facility]. He was instructed by Dr. Thorne to come to [facility] today for further workup, evaluation and chemotherapy treatment. Ronaldo is seen on arrival to [facility]. He is accompanied by his . He is alert, oriented and pleasant. Without any complaints of pain currently. He reports for the last week he is not felt as "perky" since his liver biopsy. No chest pain, shortness of breath, abdominal pain, diarrhea, dysuria or fevers. Did discuss advanced directives with patient and . He does verify that he is a full code. Hospital Course Hospital course: Pt was admitted for chemo. MRI brain showed no mass. He was hydrated and started on Allupurinol 300mg/day. Pt had no complications except mild nausea. SUMMARY - This is a 67 YO male admitted with a neuroendocrine tumor with liver mets who was admitted for chemo and was started on 05/13. MRI done on 05/12 was negative for any brain mets. A/P 1) Neuroendocrine tumor with widespread metastasis - Blood tests show elevation of the LFT's, Alk phos most likely due to the liver mets. Serial liver testing shows the levels have peaked and are starting to come down. Discussed with on-call Oncologist, who stated pt could go home today. Discussed with pt - he states he wants to leave [facility]. He was told to follow up with Oncology in the AM. Rx - For Magnesium (PO) and Allopurinol x 7 more days. Discharge Plan - Med Rec/Dispo Prescriptions: New Allopurinol [Zyloprim] 300 mg PO DAILY #7 Continue Aspirin 1 tab PO DAILY Hydrocodone/APAP 5/325 [[place] 5/325] 1 tab PO Q4H PRN PRN Reason: Pain Atenolol [Tenormin] 50 mg PO DAILY Ondansetron HCl [Zofran] 8 mg PO Q8H PRN PRN Reason: Nausea Prochlorperazine Maleate [Compazine] 10 mg PO Q6H PRN PRN Reason: Nausea raNITIdine HCl [Zantac] 1 tab PO BID Tamsulosin HCl [Flomax] 1 cap PO HS Magnesium Oxide [Magnesium] 1 tab PO BID #20 Iron Ps Cmplx/Vit B12/FA [Poly-Iron 150 Forte Capsule] 1 each PO BID Multivit-Min/Iron/Folic Acid/K [Multi-Day Plus Minerals Tablet] 1 tab PO DAILY Discharge Instructions/Outpatient Orders: Final Provider Discharge Instructions Location: Determined By Patient - Disposition 01 Discharged Home, Self-Care
[2017-05-15] MEDS: SALINE FLUSH 10ml SYRINGE IV PRN (15:11)
== END 2017-05-15 15:40 | disposition home or self-care (01) | DRG 844 ==
LOC: MED 11:22
PROVIDERS: ADMIT Internal Medicine; ATTEND Internal Medicine